=== PATIENT | male | born 1970 | race Caucasian/White ===

== ENCOUNTER 2024-03-31 14:38 | Emergency (ER) | payer SELFPAY ==
[2024-03-31 14:39] VITALS: BP 144/92; PULSE 96; RESP 15; TEMP 36.4; O2SAT 98; BMI 28.8
--- NOTE | 2024-03-31 15:18 | CT_ITS ---
STUDY: CT ABDOMEN AND PELVIS WITHOUT CONTRAST REASON FOR EXAM: Male, 53 years old. left flank pain RADIATION DOSAGE (If Supplied By Facility): CTDIvol = ( 8.06 ) mGy, DLP = ( 426.87 ) mGycm TECHNIQUE: Transaxial images were obtained from the dome of the diaphragm to the symphysis pubis without oral contrast, and without intravenous contrast. Sagittal and coronal images were reconstructed. Individualized dose optimization techniques were used for this CT. COMPARISON: None. FINDINGS: The visualized lung bases are unremarkable. The visualized portions of the heart are within normal limits. Liver is normal in size. There are 2 small cysts in the right lobe and one in the left. Bile ducts are not dilated.. Solitary calcified stone noted in the gallbladder without pericholecystic edema.. Normal spleen. Normal pancreas. Normal bilateral adrenal glands. No evidence for renal obstruction.. There is a small right renal cyst Normal visualized stomach. Normal small intestine. Minor diverticular changes of the colon without evidence for acute diverticulitis. The appendix is visualized and appears normal. Minor atherosclerotic change of the aorta and common iliac arteries without evidence for aneurysm.. Normal inferior vena cava. Normal retroperitoneum. Incompletely distended thick walled bladder of uncertain clinical significance Normal abdominal wall. Lumbar spine demonstrates mild spondylosis. CT/Abdomen/Pelvis without Cont IMPRESSION: Multiple hepatic cysts. Cholelithiasis without evidence for acute cholecystitis No evidence for renal obstruction or ureteral calculus. Small right renal cyst which will not require additional imaging Incompletely distended thick walled bladder of uncertain significance. Cannot definitively exclude possibility of cystitis. Minor diverticular changes of the colon without evidence for acute diverticulitis Electronically Signed: Papi Valdez MD at 16:27 EDT ,
[2024-03-31 15:19] LABS: Absolute Lymphocyte Count 3.09 X10^3/uL (0.83-4.51); Absolute Neutrophil Count 9.7 X10^3/uL (2.0-7.7); Basophil# 0.15 X10^3/uL; Eosinophil# 0.27 X10^3/uL; Eosinophils% 1.9 % (0-5); Hematocrit 46.2 % (40-54); Hemoglobin 16.1 g/dL (13.0-16.5); Lymphocyte # 3.09 X10^3/ul (0.83-4.51); Lymphocyte % 21.5 % (19-41); Mean Corp Hgb Conc 34.8 g/dL (32-36); Mean Corpuscular Hgb 32.7 pg (27.0-32.0); Mean Corpuscular Volume 93.9 fL (80-94); Monocyte# 1.19 X10^3/uL; Monocyte% 8.3 % (0-10); NRBC Flagged by Analyzer 0 % (0-5); Neutrophil # 9.65 X10^3/uL (2.7-7.7); Platelet Count 334 K/mm3 (150-450); RBC Distribution Width CV 13.2 % (11.6-14.6); RBC Distribution Width SD 46.1 fl (35.1-43.9); Red Blood Count 4.92 M/mm3 (4.6-6.2); White Blood Count 14.4 K/mm3 (4.4-11.0)
--- NOTE | 2024-03-31 15:23 | EX.ED.GUMALE ---
HPI History of Present Illness Chief Complaint: Flank Pain Narrative Narrative: 53-year-old male presenting with left flank pain. Onset was abrupt yesterday. He states that sharp and left-sided. Radiates to the left side of his abdomen. Denies dysuria, urinary frequency, hematuria. Denies nausea or vomiting. He does have trouble finding a position of comfort. Denies any direct trauma. No injury to the feet lifting. No loss of bladder or bowel control. No saddle anesthesia or paresthesia. No history of kidney stones. PFSH PFSH Home Medications ?Medication ?Instructions ?Recorded ?Last Taken ?Type cyclobenzaprine 10 mg tablet 10 mg PO TID PRN Muscle Spasm #20 03/31/24 Unknown Rx TABLETS Allergy/AdvReac Type Severity Reaction Status Date / Time No Known Allergies Allergy Verified 03/31/24 14:40 Social History Smoking Status: Current every day smoker tobacco type: cigarettes ROS ROS ED Constitutional Constitutional ED: Denies chills, fever(s) or sweats Eyes Eyes: Denies blurry vision or change in vision ENT ENT ED: Denies ear pain or sore throat Cardiovascular Cardiovascular: Denies chest pain, palpitations or racing heartbeat Respiratory/Chest Respiratory/Chest: Denies cough, dyspnea or sputum Gastrointestinal Gastrointestinal: Reports abdominal pain; Denies constipation, diarrhea, nausea or vomiting Genitourinary Genitourinary ED: Denies dysuria, hematuria or urinary frequency Musculoskeletal Musculoskeletal: Reports back pain; Denies arthralgias, myalgias or neck pain Integumentary Denies abscess, Abrasions or rash Neurologic Neurologic: Denies headache(s), paresthesias or weakness Psychiatric Psychiatric: Denies anxiety, depression, suicidal ideation or suicidal thoughts Endocrine Endocrinology: Denies polydipsia or polyuria EXAM Physical Exam Const Vital Signs: 03/31/24 14:39 03/31/24 16:39 Temperature 97.5 F L Temperature Source Temporal Pulse Rate 96 87 Respiratory Rate 15 14 Blood Pressure 144/92 H 143/91 H Blood Pressure Mean 109 108 Pulse Ox 98 98 Oxygen Delivery Method Room Air Room Air Positive well nourished HEENT Reports moist mucous membranes normocephalic Eyes PERRL and EOMs intact bilaterally Resp normal respiratory effort Cardio regular rate and regular rhythm GI Palpation: tender LLQ Bladder / Kidney Exam: CVA tenderness left Back/Spine Lumbar Spine / Lower Back: Negative for lumbar spinal tenderness Neuro oriented x3 and CN's II-XII intact bilaterally Sensorium / Orientation: alert Motor Exam: strength 5/5 throughout Psych mental status grossly normal MDM MDM MDM Narrative Medical decision making narrative: Patient presenting with right flank pain. Differential includes colitis, diverticulitis, constipation, UTI, pyelonephritis, renal calculi, ureteral calculi, bowel obstruction, malignancy, dehydration, electrolyte abnormalities. CBC will be obtained to assess white blood cell count, hemoglobin, platelets. BMP to assess renal function, electrolytes, glucose. Urinalysis to assess for UTI or occult blood. Patient medicated with Toradol. CT of the abdomen pelvis without contrast will be obtained. CBC shows slight leukocytosis of 14.4. Hemoglobin 16.1. Platelets are normal at 334. Renal function and electrolytes within normal limits. Urinalysis negative for occult blood and infection. Patient initially given a dose of Toradol which did help. He was requesting something more for pain and he was ordered morphine and Zofran however he declines this. He states he does not want narcotic pain medication. I counseled him that his white blood cell count was a little bit elevated but was nonspecific and I did not see any evidence of infection. His lab work otherwise of normal suggesting this might be musculoskeletal. I did read the CT of the abdomen pelvis as cholelithiasis however he does not have any right upper quadrant pain. Patient will be given cyclobenzaprine to take at home and I counseled he can alternate Tylenol ibuprofen. Return precautions are discussed. Impression: 1. Left flank pain 2. Leukocytosis Lab Data Attestation: I reviewed the patient's lab results. Labs: Laboratory Results - last 24 hr 03/31/24 03/31/24 15:00 16:30 WBC 14.4 H RBC 4.92 Hgb 16.1 Hct 46.2 MCV 93.9 MCH 32.7 H MCHC 34.8 RDW Std Deviation 46.1 H RDW Coeff of Adrianna 13.2 Plt Count 334 MPV 9.0 Immature Gran % (Auto) 0.300 Neut % (Auto) 67.0 Lymph % (Auto) 21.5 [place] % (Auto) 8.3 Eos % (Auto) 1.9 Baso % (Auto) 1.0 Absolute Neuts (auto) 9.7 H Absolute Lymphs (auto) 3.09 Nucleated RBC % 0 Sodium 136 Potassium 3.9 Chloride 106 Carbon Dioxide 25.0 Anion Gap 5 BUN 11 Creatinine 0.88 Estim Creat Clear Calc 108.06 Est GFR (MDRD) Af Amer 117 Est GFR (MDRD) Non-Af 96 BUN/Creatinine Ratio 12.5 Glucose 97 Calcium 9.9 Urine Color Yellow Urine Clarity Clear Urine pH 6.0 Ur Specific [place] 1.015 Urine Protein Negative Urine Glucose (UA) Normal Urine Ketones 5 H Urine Occult Blood Negative Urine Nitrite Negative Urine Bilirubin Negative Urine Urobilinogen Normal Ur Leukocyte Esterase Negative Urine RBC 0 SEEN Urine WBC 0 SEEN Ur Squamous Epith Cells 0 SEEN Urine Bacteria 0 SEEN Urine Mucus 0 SEEN Radiography Diagnostic Testing: Clinical Impression(s) from Imaging Studies Abdomen/Pelvis CT 03/31/24 15:18 IMPRESSION: Multiple hepatic cysts. Cholelithiasis without evidence for acute cholecystitis No evidence for renal obstruction or ureteral calculus. Small right renal cyst which will not require additional imaging Incompletely distended thick walled bladder of uncertain significance. Cannot definitively exclude possibility of cystitis. Minor diverticular changes of the colon without evidence for acute diverticulitis Electronically Signed: Papi Valdez MD at 16:27 EDT , Discharge Plan Triage Chief Complaint: Flank Pain ED Provider: José Paris Dx/Rx/DC Orders Instructions: ED Flank Pain, Uncertain Cause Prescriptions: New cyclobenzaprine 10 mg tablet 10 mg PO TID PRN (Reason: Muscle Spasm) Qty: 20 0RF Primary Care Provider: Care Physician,No [facility] Care Physician,No Primary [Primary Care Provider] - Print Language: [place]olan Disposition Disposition: Home, Self Care Discharge Date/Time: 03/31/24 17:44
[2024-03-31] MEDS: Ketorolac 15 MG/ML Vial IV (15:27)
[2024-03-31 15:35] LABS: Anion Gap 5 (5-15); BUN 11 mg/dL (7-18); BUN/Creat Ratio 12.5 RATIO (10-20); Calcium,Total 9.9 mg/dL (8.5-10.1); Chloride 106 mmol/L (98-107); Creatinine, Serum 0.88 mg/dL (0.70-1.30); EST Glomerular Filtration Rate 96 mL/min (>60); Est Glom Filt Rate - Afr Amer 117 mL/min (>60); Estimated Creatinine Clearance 108.06 ml/min; Glucose 97 mg/dL (74-106); Potassium 3.9 mmol/L (3.5-5.1); Sodium Level 136 mmol/L (136-145)
[2024-03-31 16:39] VITALS: BP 143/91; PULSE 87; RESP 14; O2SAT 98
[2024-03-31 16:42] LABS: Bacteria 0 SEEN /hpf (None Seen); Mucous, Urine 0 SEEN /hpf (<or=2+); Red Blood Cells-Urine 0 SEEN /hpf (0-5); Squamous Epithelial Cells - UA 0 SEEN /hpf (0-5); White Blood Cells 0 SEEN /hpf (0-5)
[2024-03-31 16:46] LABS: Color, Urine Yellow (Yellow); Glucose, Dipstick Normal (Normal); Ketone-Dipstick 5 mg/dl (Negative); Leukocyte Esterase-Dipstick Negative /ul (Negative); Nitrite-Dipstick Negative (Negative); Occult Blood-Urine Negative /ul (Negative); Protein-Dipstick Negative (Negative); Specific Gravity, Urine 1.015 (1.002-1.030); Urine Bilirubin Dipstick Negative (Negative); Urine Clarity Clear (Clear); Urine Urobilinogen Normal (Normal)
== END 2024-03-31 17:44 | disposition home or self-care (01) ==
PROVIDERS: Emergency Provider Student in an Organized Health Care Education/Training Program; Visit Provider Student in an Organized Health Care Education/Training Program
DX: R10.9 Unspecified abdominal pain (principal); F17.210 Nicotine dependence, cigarettes, uncomplicated; D72.829 Elevated white blood cell count, unspecified; M54.9 Dorsalgia, unspecified; K80.20 Calculus of gallbladder without cholecystitis without obstruction; K76.89 Other specified diseases of liver
CPT/HCPCS: 74176; 80048; 81001; 85025; 96374; 96375; 99283; A4216; J2405